=== PATIENT | male | born 1995 | race African-American/Black ===

== ENCOUNTER 2016-08-24 14:02 | Emergency (ER) | payer SELFPAY ==
--- NOTE | 2016-08-24 14:14 | ER Document Report ---
ED Medical Screen (RME) - General Chief Complaint: Cold Symptoms Stated Complaint: COUGH,EYE IRRITATION,SORE THROAT Time seen by provider: 14:13 Mode of Arrival: Ambulatory Information source: Patient Notes: 21-year-old smoking male complaining of head congestion and cough for 4 days. He wants to know if he has influenza. Lungs are clear in triage. TRAVEL OUTSIDE OF THE [place] IN LAST 30 DAYS: No - Related Data Allergies/Adverse Reactions: No Known Allergies Allergy (Verified 08/24/16 14:08) Past Medical History - Social History Chew tobacco use (# tins/day): No Frequency of alcohol use: Occasional Drug Abuse: None Renal/ Medical History: Denies: Hx Peritoneal Dialysis - Immunizations Immunizations up to date: Yes Hx Diphtheria, Pertussis, Tetanus Vaccination: Yes Physical Exam - Vital signs Vitals: Temp Pulse Resp BP Pulse Ox 99.6 F 91 16 107/80 96 08/24/16 14:07 08/24/16 14:07 08/24/16 14:07 08/24/16 14:07 08/24/16 14:07 Course - Vital Signs Vital signs: Temp Pulse Resp BP Pulse Ox 99.6 F 91 16 107/80 96 08/24/16 14:07 08/24/16 14:07 08/24/16 14:07 08/24/16 14:07 08/24/16 14:07
--- NOTE | 2016-08-24 14:40 | ER Document Report ---
ED Flu Like - General Information source: Patient - HPI Patient complains to provider of: cough Onset: Other - 4 days Associated symptoms: Other - See above <AYAKA LAZO - Last Filed: 08/24/16 15:54> - General Mode of Arrival: Ambulatory TRAVEL OUTSIDE OF THE [place] IN LAST 30 DAYS: No <DANIA CROWDER - Last Filed: 08/24/16 22:52> - General Chief Complaint: Cough Stated Complaint: cough Notes: Patient is a 21 year old male who presents to the emergency department complaining of a cough onset 4 days ago. Patient also complains of sore throat, chills, weakness, loss of appetite, and fever up to 101 at home. Patient states he has been using home remedies with no relief and that he has been missing work. Patient states that he has been drinking plenty of fluids and getting rest. Patient did not receive a flu shot this season. (AYAKA LAZO) - Related Data Allergies/Adverse Reactions: No Known Allergies Allergy (Verified 08/24/16 14:08) Past Medical History - General Information source: Patient - Social History Smoking Status: Current Every Day Smoker Chew tobacco use (# tins/day): No Frequency of alcohol use: Occasional Drug Abuse: None Family History: Reviewed & Not Pertinent Patient has suicidal ideation: No Patient has homicidal ideation: No Renal/ Medical History: Denies: Hx Peritoneal Dialysis - Immunizations Immunizations up to date: Yes Hx Diphtheria, Pertussis, Tetanus Vaccination: Yes <DANIA CROWDER - Last Filed: 08/24/16 22:52> Review of Systems - Review of Systems Constitutional: See HPI, Chills, Fever, Weakness EENT: See HPI, Throat pain Cardiovascular: No symptoms reported Respiratory: See HPI, Cough Gastrointestinal: See HPI, Poor appetite. denies: Poor fluid intake Genitourinary: No symptoms reported Male Genitourinary: No symptoms reported Musculoskeletal: No symptoms reported Skin: No symptoms reported Hematologic/Lymphatic: No symptoms reported Neurological/Psychological: No symptoms reported -: Yes All other systems reviewed and negative <AYAKA LAZO - Last Filed: 08/24/16 15:54> Physical Exam - Vital signs Interpretation: Normal - General General appearance: Appears well, Alert - HEENT Head: Normocephalic, Atraumatic Nasal: Other - congestion - Respiratory Respiratory status: No respiratory distress Chest status: Nontender Breath sounds: Normal Chest palpation: Normal - Cardiovascular Rhythm: Regular Heart sounds: Normal auscultation Murmur: No - Abdominal Inspection: Normal Distension: No distension Bowel sounds: Normal Tenderness: Nontender Organomegaly: No organomegaly - Back Back: Normal, Nontender - Extremities General upper extremity: Normal inspection General lower extremity: Normal inspection - Neurological Neuro grossly intact: Yes Cognition: Normal Orientation: AAOx4 [place] Coma Scale Eye Opening: Spontaneous Timothy Coma Scale Verbal: Oriented Timothy Coma Scale Motor: Obeys Commands [place] Coma Scale Total: 15 Speech: Normal - Psychological Associated symptoms: Normal affect, Normal mood - Skin Skin Temperature: Warm Skin Moisture: Dry Skin Color: Normal <AYAKA LAZO - Last Filed: 08/24/16 15:54> Course <AYAKA LAZO - Last Filed: 08/24/16 15:54> <DANIA CROWDER - Last Filed: 08/24/16 22:52> - Re-evaluation Re-evalutation: 08/24/16 22:51 Patient with symptoms consistent with influenza. Patient is taking by mouth and [id number] medications. Lungs are clear. Vitals are otherwise stable. Patient is instructed to stay hydrated and continue to take over-the- counter medications as needed. He will be given a prescription for Tamiflu to give prophylactically to close family member with asthma. Stable for discharge home. Return if any worsening or concerning symptoms. Understands and agrees with plan. (DANIA CROWDER) - Vital Signs Vital signs: Temp Pulse Resp BP Pulse Ox 100 F 96 20 112/68 98 08/24/16 15:09 08/24/16 15:09 08/24/16 15:09 08/24/16 15:09 08/24/16 15:09 Discharge <AYAKA LAZO - Last Filed: 08/24/16 15:54> <DANIA CROWDER - Last Filed: 08/24/16 22:52> - Discharge Clinical Impression: Influenza Condition: Stable Disposition: HOME, SELF-CARE Instructions: Influenza ([facility]) Prescriptions: Oseltamivir Phosphate [Tamiflu 75 mg Capsule] 75 mg PO DAILY #10 capsule Forms: Return to Work Scribe Attestation: 08/24/16 22:52 I personally performed the services described in the documentation, reviewed and edited the documentation which was dictated to the scribe in my presence, and it accurately records my words and actions. (DANIA CROWDER) Scribe Documentation - Scribe Written by Scribe:: mariela Mortensen, 08/24/16, 1533 acting as scribe for :: Suellen <AYAKA LAZO - Last Filed: 08/24/16 15:54>
[2016-08-24 15:11] VITALS: BP 112/68
== END 2016-08-24 15:09 | disposition home or self-care (01) ==
LOC: ER 14:02
DX: J11.1 Influenza due to unidentified influenza virus with other respiratory manifestations (principal); R50.9 Fever, unspecified; R53.1 Weakness; F17.200 Nicotine dependence, unspecified, uncomplicated
CPT/HCPCS: 99283